=== PATIENT | male | born 1965 | race Caucasian/White ===

== ENCOUNTER 2018-06-19 13:15 | Emergency (ER) | payer BC ==
[2018-06-19 15:15] VITALS: BP 155/95
--- NOTE | 2018-06-19 16:11 | UC ---
UC General HPI - HPI Summary HPI Summary: friday felt achy and sweaty. friday, developed n/v/d. over the past 24 hours, able to keep po fluids down and stool loose but diarrhea resolved. + weakness and chills. no travel hx, recent antibiotic use. exposed to someone with the same s/s's. - History of Current Complaint Chief Complaint: UCGeneralIllness Stated Complaint: HOT/COLD SWEATS, FATIGUE, VOMITTING Time Seen by Provider: 06/19/18 15:53 Hx Obtained From: Patient Onset/Duration: Gradual Onset Timing: Constant Pain Intensity: 0 - Allergy/Home Medications Allergies/Adverse Reactions: Allergies Allergy/AdvReac Type Severity Reaction Status Date / Time Penicillins Allergy Swelling Verified 06/19/18 15:06 Of Face,Lips,& Throat shellfish derived Allergy Difficulty Verified 06/19/18 15:06 Breathing Home Medications: Home Medications Atorvastatin* [Lipitor*] 10 mg PO 1700 06/19/18 [History Confirmed 06/19/18] Losartan TAB* [Cozaar TAB*] 25 mg PO DAILY 06/19/18 [History Confirmed 06/19/18] Sertraline* [Zoloft*] 25 mg PO DAILY 06/19/18 [History Confirmed 06/19/18] PMH/Surg Hx/FS Hx/Imm Hx Cardiovascular History: Hypertension - Surgical History Surgical History: None - Family History Known Family History: Positive: Cardiac Disease - Social History Occupation: Employed Full-time Alcohol Use: Occasionally Substance Use Type: None Smoking Status (MU): Former Smoker - Immunization History Vaccination Up to Date: Yes Review of Systems Constitutional: Fever, Chills Skin: Negative Eyes: Negative ENT: Negative Respiratory: Negative Cardiovascular: Negative Gastrointestinal: Vomiting, Diarrhea, Nausea Genitourinary: Negative Motor: Negative Neurovascular: Negative Musculoskeletal: Negative Neurological: Weakness Psychological: Negative Is Patient Immunocompromised?: No All Other Systems Reviewed And Are Negative: Yes Physical Exam Triage Information Reviewed: Yes Appearance: Well-Appearing Vital Signs: Initial Vital Signs Temp 98.1 F 06/19/18 15:07 Pulse 102 06/19/18 15:07 Resp 15 06/19/18 15:07 BP 155/95 06/19/18 15:07 Pulse Ox 97 06/19/18 15:07 Vital Signs Reviewed: Yes Eyes: Positive: Conjunctiva Clear ENT: Positive: Pharynx normal, TMs normal. Negative: Nasal congestion, Nasal drainage Neck: Positive: Supple, Nontender, No Lymphadenopathy Respiratory: Positive: Lungs clear, Normal breath sounds Cardiovascular: Positive: RRR, No Murmur. Negative: Tachycardia Abdomen Description: Positive: Nontender, No Organomegaly, Soft. Negative: Distended, Guarding Bowel Sounds: Positive: Present Musculoskeletal: Positive: ROM Intact Neurological: Positive: Alert Psychological: Positive: Age Appropriate Behavior Skin Exam: Normal Course/Dx - Course Course Of Treatment: BP illness related. non toxic. no acute abdomen. improving at time of exam. - Differential Dx - Multi-Symptom Provider Diagnoses: vomiting. diarrhea Discharge - Sign-Out/Discharge Documenting (check all that apply): Patient Departure All imaging exams completed and their final reports reviewed: No Studies - Discharge Plan Condition: Stable Disposition: HOME Patient Education Materials: Acute Nausea and Vomiting (ED), Acute Diarrhea (ED ) Forms: *Work Release Referrals: Emilee Bartlett [Primary Care Provider] - 5 Days - Billing Disposition and Condition Condition: STABLE Disposition: Home
== END 2018-06-19 16:20 | disposition home or self-care (01) ==
LOC: UCCORT 13:15
DX: R11.10 Vomiting, unspecified (principal); R19.7 Diarrhea, unspecified; I10 Essential (primary) hypertension; Z88.0 Allergy status to penicillin; Z91.013 Allergy to seafood; Z79.899 Other long term (current) drug therapy; Z87.891 Personal history of nicotine dependence
CPT/HCPCS: 99201; G0463